=== PATIENT | male | born 1995 | race African-American/Black ===

== ENCOUNTER 2023-05-06 20:07 | Emergency (ER) | payer OTHER ==
[2023-05-06 20:19] VITALS: BP 113/66; PULSE 58; RESP 18; TEMP 97.6; BMI 19.6
== END 2023-05-06 21:38 | disposition home or self-care (01) ==
LOC: JER 20:07 → JERFT 20:07
DX: M54.50 Low back pain, unspecified (principal); M62.830 Muscle spasm of back; M41.24 Other idiopathic scoliosis, thoracic region
CPT/HCPCS: 72100-TC-FY; 99283-25

== ENCOUNTER 2023-11-08 13:42 | Emergency (ER) | payer OTHER ==
[2023-11-08 13:50] VITALS: BP 109/62; PULSE 81; RESP 20; TEMP 97.8; BMI 20.3
[2023-11-08] MEDS ORDERED: ACETAMINOPHEN 500 MG TABLET (FP) ONE (15:09)
[2023-11-08] MEDS: ACETAMINOPHEN 500 MG TABLET (FP) PO ONE (15:12)
== END 2023-11-08 16:01 | disposition home or self-care (01) ==
LOC: JERFT 13:42
DX: S13.4XXA Sprain of ligaments of cervical spine, initial encounter (principal); M54.2 Cervicalgia; V94.9XXA Unspecified water transport accident, initial encounter; Y93.I9 Activity, other involving external motion
CPT/HCPCS: 72040-TC; 99283-25